=== PATIENT | female | born 1965 | race Two or more races ===

== ENCOUNTER 2019-07-19 10:17 | Emergency (ER) | payer BC ==
[~2019-07-19] VITALS: Ht 170.2 cm; Wt 88.5 kg
[2019-07-19 10:43] VITALS: BP 156/101
== END 2019-07-19 12:22 | disposition home or self-care (01) ==
LOC: ER 10:24
DX: S13.4XXA Sprain of ligaments of cervical spine, initial encounter (principal); I10 Essential (primary) hypertension; R42 Dizziness and giddiness; V49.49XA Driver injured in collision with other motor vehicles in traffic accident, initial encounter; Y93.89 Activity, other specified; Y92.488 Other paved roadways as the place of occurrence of the external cause; Y99.8 Other external cause status
CPT/HCPCS: 72040-TC